=== PATIENT | female | born 1995 ===

== ENCOUNTER → 2020-09-19 | Outpatient (CLI) | payer SELFPAY ==
[~2020-09-19] MED LIST: COVID-19 VACCINE (PFIZER)/PF 30 MCG/0.3 ML VIAL IM ONE; EPINEPHRINE INJ/PF 1 MG/1 ML AMPULE IM PRN
== END ==
LOC: EMPHEALTH 07:40
PROVIDERS: ATTEND Internal Medicine
DX: Z23 Encounter for immunization (principal)
CPT/HCPCS: 91300

== ENCOUNTER → 2020-10-10 | Outpatient (CLI) | payer SELFPAY | LOC: EMPHEALTH 07:40 | PROVIDERS: ATTEND Internal Medicine | DX: Z23 Encounter for immunization (principal) | CPT/HCPCS: 91300 ==